=== PATIENT | male | born 1980 | race African-American/Black ===

== ENCOUNTER 2019-03-14 11:31 | Emergency (ER) | payer MEDICAID ==
[~2019-03-14] VITALS: Ht 175.3 cm; Wt 70.0 kg
[2019-03-14] MEDS ORDERED: SODIUM CHLORIDE 0.9% 1,000 ML IV ONE (11:49)
[2019-03-14 12:20] LABS: BASOPHILS % 0.6 % (0.0-2.0); EOSINOPHILS % 0.6 % (0.0-5.0); HEMATOCRIT. 40.3 % (42.0-52.0); HEMOGLOBIN. 13.8 g/dL (14.0-18.0); MEAN CORPUSCULAR VOLUME 101.9 fL (80.0-94.0); MEAN PLATELET VOLUME 8.1 fl (7.4-10.4); NEUTROPHILS % 71.8 % (40.0-76.0); PLATELET 275 x1000/uL (130-400); RED BLOOD CELL COUNT 3.96 mill/uL (4.7-6.1); RED CELL DISTRIBUTION WIDTH 13.6 % (11.6-14.6)
[2019-03-14 12:27] LABS: CHLORIDE 105 mEq/L (98-107)
[2019-03-14] MEDS ORDERED: ONDANSETRON HCL 4MG/2ML INJ IV ONE (12:30)
[2019-03-14 12:31] LABS: ETHANOL BLOOD < 10 mg/dL
[2019-03-14] MEDS ORDERED: KCL 10MEQ/50ML PREMIX 50 ML IV ONE (12:45)
[2019-03-14] MEDS ORDERED: POTASSIUM CHLORIDE 20MEQ TABLET SR PO ONE (12:45)
[2019-03-14] MEDS ORDERED: MAGNESIUM 2 G PREMIX 50 ML IV ONE (12:45)
[2019-03-14 14:08] LABS: *AMPHETAMINES SCREEN URINE NEGATIVE (NEGATIVE); *BARBITURATES SCREEN URINE NEGATIVE (NEGATIVE)
[2019-03-14 14:09] LABS: *BENZODIAZEPINES SCREEN URINE NEGATIVE (NEGATIVE); *COCAINE SCREEN URINE NEGATIVE (NEGATIVE); METHADONE URINE SCREEN NEGATIVE (NEGATIVE)
[2019-03-14 14:10] LABS: CANNABINOID URINE SCREEN PRESUMTIVE POSITIVE (NEGATIVE); OPIATES URINE SCREEN NEGATIVE (NEGATIVE); PHENCYCLIDINE URINE SCREEN NEGATIVE (NEGATIVE)
[2019-03-14 16:55] VITALS: BP 113/66
== END 2019-03-14 16:55 | disposition home or self-care (01) ==
LOC: ER 11:59
DX: R07.89 Other chest pain (principal); R00.2 Palpitations; F45.8 Other somatoform disorders; F12.10 Cannabis abuse, uncomplicated; R42 Dizziness and giddiness; E87.6 Hypokalemia; I10 Essential (primary) hypertension
CPT/HCPCS: 36415; 71045; 80048; 80305; 80320; 84132; 84484; 85025; 93005; 96361; 96365; 96375; 99284; J2405; J3475; J3480; J7030; Z7610; G0480

== ENCOUNTER 2019-06-25 08:03 | Emergency (ER) | payer MEDICAID, MEDICARE ==
[~2019-06-25] VITALS: Ht 175.3 cm; Wt 64.0 kg
[2019-06-25] MEDS ORDERED: SODIUM CHLORIDE 0.9% 1,000 ML IV ONE ×2 (08:54→10:15)
[2019-06-25] MEDS ORDERED: ONDANSETRON HCL 4MG/2ML INJ IV STA ×2 (08:54→10:15)
[2019-06-25] MEDS ORDERED: MORPHINE SULFATE 4 MG/ML CPJ (NOT FOR IM USE) IV STA (08:54)
[2019-06-25 09:31] LABS: CHLORIDE 99 mEq/L (98-107)
[2019-06-25 09:33] LABS: BASOPHILS % 0.5 % (0.0-2.0); EOSINOPHILS % 0.2 % (0.0-5.0); HEMATOCRIT. 44.5 % (42.0-52.0); HEMOGLOBIN. 15.3 g/dL (14.0-18.0); LYMPHOCYTES % 9.8 % (20.0-50.0); MEAN CORPUSCULAR HEMOGLOBIN 35.2 pg (28.0-32.0); MEAN CORPUSCULAR VOLUME 102.6 fL (80.0-94.0); MONOCYTES % 3.1 % (2.0-8.0); NEUTROPHILS % 86.4 % (40.0-76.0); PLATELET 254 x1000/uL (130-400); RED BLOOD CELL COUNT 4.34 mill/uL (4.7-6.1); RED CELL DISTRIBUTION WIDTH 13.9 % (11.6-14.6)
[2019-06-25 09:35] LABS: PROTHROMBIN TIME 9.9 sec (9.6-11.0)
[2019-06-25 09:40] LABS: CLARITY URINE CLEAR (CLEAR); COLOR URINE YELLOW (YELLOW); KETONES URINE 4+ (NEGATIVE); LEUKOCYTE ESTERASE URINE NEGATIVE (NEGATIVE); NITRITE URINE NEGATIVE (NEGATIVE); OCCULT BLOOD URINE NEGATIVE (NEGATIVE); PROTEIN URINE 2+ (NEGATIVE); SPECIFIC GRAVITY URINE 1.038 (1.005-1.030); UROBILINOGEN URINE 0.2 E.U./dL (0.2-1.0)
[2019-06-25] MEDS ORDERED: KETOROLAC 30MG/ML VIAL IV STA (10:15)
[2019-06-25 12:10] VITALS: BP 118/73
== END 2019-06-25 12:10 | disposition home or self-care (01) ==
LOC: ER 08:03
DX: K29.20 Alcoholic gastritis without bleeding (principal); F10.10 Alcohol abuse, uncomplicated; Y90.9 Presence of alcohol in blood, level not specified
CPT/HCPCS: 36415; 80053; 81003; 83690; 85025; 85610; 96361; 96374; 96375; 96376; 99283; J1885; J2270; J2405; J7030

== ENCOUNTER 2019-06-26 06:30 | Emergency (ER) | payer MEDICARE ==
[~2019-06-26] VITALS: Ht 175.3 cm; Wt 64.0 kg
[2019-06-26] MEDS ORDERED: MORPHINE SULFATE 4 MG/ML CPJ (NOT FOR IM USE) IV STA (07:10)
[2019-06-26] MEDS ORDERED: MAGNESIUM/ALUMINUM HYDROXIDE/SIMETHICONE 30ML UDC PO STA (07:10)
[2019-06-26] MEDS ORDERED: ONDANSETRON HCL 4MG/2ML INJ IV STA (07:10)
[2019-06-26] MEDS ORDERED: VISCOUS LIDOCAINE 2% 15 ML UDC PO STA (07:10)
[2019-06-26] MEDS ORDERED: SODIUM CHLORIDE 0.9% 1,000 ML IV ONE (07:10)
[2019-06-26] MEDS ORDERED: DICYCLOMINE 10 MG/5 ML ORAL SYR PO STA (07:10)
[2019-06-26 08:28] LABS: BASOPHILS % 0.4 % (0.0-2.0); HEMATOCRIT. 37.7 % (42.0-52.0); HEMOGLOBIN. 13.1 g/dL (14.0-18.0); LYMPHOCYTES % 9.4 % (20.0-50.0); MEAN CORPUSCULAR HEMOGLOBIN 35.7 pg (28.0-32.0); MEAN CORPUSCULAR VOLUME 102.9 fL (80.0-94.0); MEAN PLATELET VOLUME 8.8 fl (7.4-10.4); MONOCYTES % 4.9 % (2.0-8.0); NEUTROPHILS % 85.3 % (40.0-76.0); PLATELET 211 x1000/uL (130-400); RED BLOOD CELL COUNT 3.67 mill/uL (4.7-6.1); RED CELL DISTRIBUTION WIDTH 13.9 % (11.6-14.6)
[2019-06-26 08:36] LABS: CHLORIDE 101 mEq/L (98-107); PROTHROMBIN TIME 10.2 sec (9.6-11.0)
[2019-06-26 08:56] LABS: CLARITY URINE CLOUDY (CLEAR); COLOR URINE YELLOW (YELLOW); KETONES URINE 4+ (NEGATIVE); LEUKOCYTE ESTERASE URINE NEGATIVE (NEGATIVE); NITRITE URINE NEGATIVE (NEGATIVE); OCCULT BLOOD URINE NEGATIVE (NEGATIVE); PH URINE 7.5 (4.5-8.0); PROTEIN URINE 1+ (NEGATIVE); SPECIFIC GRAVITY URINE 1.029 (1.005-1.030); UROBILINOGEN URINE 0.2 E.U./dL (0.2-1.0)
[2019-06-26 10:54] VITALS: BP 119/69
== END 2019-06-26 10:55 | disposition home or self-care (01) ==
LOC: ER 06:30
DX: R10.84 Generalized abdominal pain (principal); F17.210 Nicotine dependence, cigarettes, uncomplicated; Z98.890 Other specified postprocedural states
CPT/HCPCS: 36415; 74176; 80053; 81003; 83690; 85025; 85610; 96361; 96372; 96374; 99284; J2270; J2405; J7030; Z7610

== ENCOUNTER 2019-06-27 08:38 | Emergency (ER) | payer MEDICARE ==
[~2019-06-27] VITALS: Ht 172.7 cm; Wt 73.0 kg
[2019-06-27] MEDS ORDERED: SODIUM CHLORIDE 0.9% 1,000 ML IV ONE (09:15)
[2019-06-27 09:42] LABS: BASOPHILS % 0.5 % (0.0-2.0); EOSINOPHILS % 0.1 % (0.0-5.0); HEMATOCRIT. 40.7 % (42.0-52.0); HEMOGLOBIN. 13.9 g/dL (14.0-18.0); LYMPHOCYTES % 13.5 % (20.0-50.0); MEAN CORPUSCULAR HEMOGLOBIN 35.2 pg (28.0-32.0); MEAN PLATELET VOLUME 8.7 fl (7.4-10.4); MONOCYTES % 6.1 % (2.0-8.0); NEUTROPHILS % 79.8 % (40.0-76.0); PLATELET 237 x1000/uL (130-400); RED BLOOD CELL COUNT 3.96 mill/uL (4.7-6.1); RED CELL DISTRIBUTION WIDTH 13.7 % (11.6-14.6)
[2019-06-27 09:47] LABS: CHLORIDE 102 mEq/L (98-107)
[2019-06-27 09:49] LABS: INR 0.9; PROTHROMBIN TIME 9.4 sec (9.6-11.0)
[2019-06-27] MEDS ORDERED: MORPHINE SULFATE 4 MG/ML CPJ (NOT FOR IM USE) IV ONE ×2 (10:00→14:00)
[2019-06-27] MEDS ORDERED: FAMOTIDINE 20MG/2ML VIAL IV ONE (10:00)
[2019-06-27] MEDS ORDERED: POTASSIUM CHLORIDE 20MEQ TABLET SR PO ONE (10:00)
[2019-06-27] MEDS ORDERED: ONDANSETRON HCL 4MG/2ML INJ IV ONE ×2 (10:00→14:00)
[2019-06-27 10:08] LABS: CLARITY URINE CLEAR (CLEAR); COLOR URINE YELLOW (YELLOW); KETONES URINE 2+ (NEGATIVE); LEUKOCYTE ESTERASE URINE NEGATIVE (NEGATIVE); NITRITE URINE NEGATIVE (NEGATIVE); OCCULT BLOOD URINE NEGATIVE (NEGATIVE); PH URINE >=9.0 (4.5-8.0); PROTEIN URINE NEGATIVE (NEGATIVE); SPECIFIC GRAVITY URINE 1.012 (1.005-1.030); UROBILINOGEN URINE 0.2 E.U./dL (0.2-1.0)
[2019-06-27 14:28] VITALS: BP 109/64
== END 2019-06-27 14:51 | disposition short-term general hospital (02) ==
LOC: ER 08:38
DX: K29.20 Alcoholic gastritis without bleeding (principal); F12.10 Cannabis abuse, uncomplicated
CPT/HCPCS: 36415; 80053; 81003; 83690; 85025; 85610; 96361; 96374; 96375; 96376; 99285; J2270; J2405; J3490; J7030

== ENCOUNTER 2019-10-15 19:21 | Emergency (ER) | payer MEDICARE ==
[~2019-10-15] VITALS: Ht 170.2 cm; Wt 66.0 kg
[2019-10-15] MEDS ORDERED: KETOROLAC 60MG/2ML VIAL IM STA (22:15)
[2019-10-15 22:34] VITALS: BP 145/78
== END 2019-10-16 00:15 | disposition home or self-care (01) ==
LOC: ER 19:32
DX: S90.32XA Contusion of left foot, initial encounter (principal); M79.672 Pain in left foot; W11.XXXA Fall on and from ladder, initial encounter; Y93.89 Activity, other specified; Y92.9 Unspecified place or not applicable; F41.9 Anxiety disorder, unspecified; F32.9 Major depressive disorder, single episode, unspecified; F17.200 Nicotine dependence, unspecified, uncomplicated
CPT/HCPCS: 73610; 73630; 96372; 99283; J1885; Z7610

== ENCOUNTER 2021-12-31 17:05 | Emergency (ER) | payer MEDICAID, MEDICARE ==
[~2021-12-31] VITALS: Ht 170.2 cm; Wt 75.0 kg
[2021-12-31 17:07] VITALS: BP 140/77
[2021-12-31 20:20] LABS: BASOPHILS % 0.2 % (0.0-2.0); CHLORIDE 106 mEq/L (98-107); EOSINOPHILS % 1.5 % (0.0-5.0); HEMATOCRIT. 40.7 % (42.0-52.0); HEMOGLOBIN. 13.9 g/dL (14.0-18.0); LYMPHOCYTES % 22.8 % (20.0-50.0); MEAN CORPUSCULAR HEMOGLOBIN 34.3 pg (28.0-32.0); MEAN CORPUSCULAR VOLUME 100.5 fL (80.0-94.0); MEAN PLATELET VOLUME 8.2 fl (7.4-10.4); MONOCYTES % 4.1 % (2.0-8.0); NEUTROPHILS % 71.4 % (40.0-76.0); PLATELET 315 x1000/uL (130-400); RED BLOOD CELL COUNT 4.05 mill/uL (4.7-6.1); RED CELL DISTRIBUTION WIDTH 14.1 % (11.6-14.6)
[2021-12-31 20:24] LABS: ETHANOL BLOOD < 10 mg/dL
[2021-12-31 21:02] LABS: CLARITY URINE CLEAR (CLEAR); COLOR URINE YELLOW (YELLOW); KETONES URINE 4+ (NEGATIVE); LEUKOCYTE ESTERASE URINE NEGATIVE (NEGATIVE); NITRITE URINE NEGATIVE (NEGATIVE); OCCULT BLOOD URINE NEGATIVE (NEGATIVE); PH URINE 8.5 (4.5-8.0); PROTEIN URINE 1+ (NEGATIVE); SPECIFIC GRAVITY URINE 1.028 (1.005-1.030)
[2021-12-31 21:14] LABS: METHADONE URINE SCREEN NEGATIVE (NEGATIVE); OPIATES URINE SCREEN NEGATIVE (NEGATIVE)
[2021-12-31 21:15] LABS: *AMPHETAMINES SCREEN URINE NEGATIVE (NEGATIVE); *BARBITURATES SCREEN URINE NEGATIVE (NEGATIVE); *BENZODIAZEPINES SCREEN URINE NEGATIVE (NEGATIVE); *COCAINE SCREEN URINE NEGATIVE (NEGATIVE); CANNABINOID URINE SCREEN PRESUMTIVE POSITIVE (NEGATIVE); PHENCYCLIDINE URINE SCREEN NEGATIVE (NEGATIVE)
== END 2021-12-31 22:08 | disposition home or self-care (01) ==
LOC: ER 17:05
DX: R07.89 Other chest pain (principal); R20.2 Paresthesia of skin; F41.9 Anxiety disorder, unspecified; F32.9 Major depressive disorder, single episode, unspecified; F20.9 Schizophrenia, unspecified; F12.10 Cannabis abuse, uncomplicated
CPT/HCPCS: 36415; 71045; 80053; 80305; 80320; 81003; 84484; 85025; 93005; 99285; G0480